=== PATIENT | female | born 1960 | race Caucasian/White ===

== ENCOUNTER 2018-02-17 20:34 | Emergency (ER) | payer BC ==
[2018-02-17] MEDS ORDERED: LORAZEPAM 0.5 MG TABLET ONE (21:41)
[2018-02-17 22:09] LABS: Absolute Lymphocytes (CBC) 1.4 K/uL (0.7-4.9); Absolute Monocytes 0.5 K/uL (0.1-1.3); Absolute Neutrophil 4.3 K/uL (1.8-8.0); Basophils % 0.2 % (0-1.3); Eosinophils % 0.5 % (0-4.4); Hematocrit 41.9 % (36.0-45.0); Lymphocytes % 22.7 % (15.3-44.8); MCH 30.8 pg (27.0-35.0); MCV 90.6 fL (80-100); MPV 7.4 fL (7.6-11.3); Monocytes % 7.3 % (3.3-12.3); RBC Red Blood Cell Count 4.63 M/uL (3.86-4.86)
[2018-02-17 22:12] LABS: Potassium 3.3 mEq/L (3.6-5.0)
[2018-02-17 22:15] LABS: Albumin 4.7 g/dL (3.2-5.5); Bilirubin Total 0.6 mg/dL (0.3-1.2); Protein, Total 7.2 g/dL (6.0-8.3)
--- NOTE | 2018-02-17 22:45 | EDPHYS ---
Physician Documentation [facility] Name: Chelo Chao Age: 57 yrs Sex: Female : 1960 Arrival Date: 02/17/2018 Time: 20:34 Bed 6 Private MD: ED Physician Lai Simon HPI: 02/18 06:17 This 57 yrs old Female presents to ER via Ambulatory with complaints of Psych tw4 Problem. 06:17 The patient presents to the emergency department with anxiety. Onset: The tw4 symptoms/episode began/occurred yesterday. Past psychiatric history: Prior diagnosis: depression. Associated signs and symptoms: The patient has no apparent associated signs or symptoms. Severity of symptoms: At their worst the symptoms were moderate in the emergency department the symptoms are unchanged. The patient has not experienced similar symptoms in the past. Historical: - Allergies: 02/17 20:49 fluorescein-benoxinate; aj - Home Meds: 20:49 trazodone 50 mg Oral tab [Active]; Effexor XR Oral [Active]; aj Triamterene-Hydrochlorothiazid Oral [Active]; Hydroxyzine Oral [Active]; Risperdal Oral [Active]; Metoprolol Tartrate Oral [Active]; pravastatin oral oral [Active]; Potassium Chloride Oral [Active]; Caltrate 600+D Plus Minerals oral oral [Active]; - PMHx: 20:49 Anxiety; Bipolar disorder; Hypertension; Hyperlipidemia; aj - Immunization history:: Adult Immunizations up to date. - Social history:: Smoking status: Patient/guardian denies using tobacco. - Ebola Screening: : Patient negative for fever greater than or equal to 101.5 degrees Fahrenheit, and additional compatible Ebola Virus Disease symptoms. ROS: 02/18 06:17 Constitutional: Negative for fever, chills, and weight loss, Cardiovascular: Negative tw4 for chest pain, palpitations, and edema, Respiratory: Negative for shortness of breath, cough, wheezing, and pleuritic chest pain, Abdomen/GI: Negative for abdominal pain, nausea, vomiting, diarrhea, and constipation, Back: Negative for injury and pain, MS/Extremity: Negative for injury and deformity, Skin: Negative for injury, rash, and discoloration. Neuro: Negative for altered mental status, dizziness, gait disturbance, headache, tinnitus, tremor, visual changes. Psych: Positive for anxiety, depression, insomnia, Negative for auditory hallucinations, visual hallucinations, homicidal ideation, suicide gesture, suicidal ideation. Exam: 06:17 Constitutional: This is a well developed, well nourished patient who is awake, alert, tw4 and in no acute distress. Head/Face: Normocephalic, atraumatic. Chest/axilla: Normal chest wall appearance and motion. Nontender with no deformity. No lesions are appreciated. Cardiovascular: Regular rate and rhythm with a normal S1 and S2. No gallops, murmurs, or rubs. Normal PMI, no JVD. No pulse deficits. Respiratory: Lungs have equal breath sounds bilaterally, clear to auscultation and percussion. No rales, rhonchi or wheezes noted. No increased work of breathing, no retractions or nasal flaring. Abdomen/GI: Soft, non-tender, with normal bowel sounds. No distension or tympany. No guarding or rebound. No evidence of tenderness throughout. Skin: Warm, dry with normal turgor. Normal color with no rashes, no lesions, and no evidence of cellulitis. 06:17 Psych: exam not indicated, Behavior/mood is pleasant, cooperative, Affect is calm, flat, Oriented to person, place, time, Patient has no thoughts/intents to harm self or others. Vital Signs: 02/17 20:49 BP 132 / 97; Pulse 94; Resp 16; Temp 98.3; Pulse Ox 97% on R/A; Weight 63.5 kg; Height aj 5 ft. 6 in. (167.64 cm); 21:54 BP 130 / 91; Pulse 89; Resp 16 S; Pulse Ox 98% on R/A; Pain 0/10; jd3 22:49 BP 144 / 99; Pulse 84; Resp 16 S; Pulse Ox 100% ; Pain 0/10; jd3 20:49 Body Mass Index 22.60 (63.50 kg, 167.64 cm) aj MDM: 20:52 Patient medically screened. tw4 02/18 06:17 Differential diagnosis: acute psychotic break, depression, psychosis secondary to tw4 non-compliance. Data reviewed: vital signs, nurses notes. Counseling: I had a detailed discussion with the patient and/or guardian regarding: the historical points, exam findings, and any diagnostic results supporting the discharge/admit diagnosis. Special discussion: I discussed with the patient/guardian in detail that at this point there is no indication for admission to the hospital. It is understood, however, that if the symptoms persist or worsen the patient needs to return immediately for re-evaluation. 02/17 21:35 Order name: CBC with Diff; Complete Time: 22:39 tw4 02/17 21:35 Order name: CMP; Complete Time: 22:39 tw4 Administered Medications: 02/17 21:45 Drug: Ativan 0.5 mg Route: PO; mg2 22:42 Follow up: Response: No adverse reaction jd3 22:48 Drug: Potassium Chloride 40 mEq Route: PO; jd3 22:55 Follow up: Response: Medication administered at discharge. jd3 Disposition: 02/17/18 22:45 Discharged to Home. Impression: Anxiety disorder due to known physiological condition. - Condition is Stable. - Discharge Instructions: Generalized Anxiety Disorder. - Prescriptions for Ativan 0.5 mg Oral Tablet - take 1 tablet by ORAL route every 8 hours As needed; 20 tablet. - Medication Reconciliation Form, Thank You Letter, Antibiotic Education, Prescription Opioid Use form. - Follow up: Private Physician; When: As needed; Reason: Recheck today's complaints, Continuance of care, Re-evaluation by your physician. - Problem is an ongoing problem. - Symptoms have improved. Signatures: Dispatcher [employer] EDLiliana Gonzalez RN RN aj Davies, Jonathon, RN RN jLai Alvarado MD MD tw4 Robbie Greenwood RN RN mg2 Corrections: (The following items were deleted from the chart) 22:55 22:45 02/17/2018 22:45 Discharged to Home. Impression: Anxiety disorder due to known jd3 physiological condition. Condition is Stable. Forms are Medication Reconciliation Form, Thank You Letter, Antibiotic Education, Prescription Opioid Use. Follow up: Private Physician; When: As needed; Reason: Recheck today's complaints, Continuance of care, Re-evaluation by your physician. Problem is an ongoing problem. Symptoms have improved. tw4
--- NOTE | 2018-02-17 22:45 | ER ---
Nurse's Notes [facility] Name: Chelo Chao Age: 57 yrs Sex: Female : 1960 Arrival Date: 02/17/2018 Time: 20:34 Bed 6 Private MD: Diagnosis: Anxiety disorder due to known physiological condition Presentation: 02/17 20:43 Presenting complaint: Patient states: Recent obsessions about financial concerns. aj Family is worried that patient is experiencing severe depression and possibly needs medication adjustment. Transition of care: patient was not received from another setting of care. Onset of symptoms was February 01, 2018. Risk Assessment: Do you want to hurt yourself or someone else? Patient reports no desire to harm self or others. Note Denies suicidal or homicidal ideation. Denies hallucinations. Care prior to arrival: None. 20:43 Method Of Arrival: Ambulatory 20:43 Acuity: KAMRAN 4 aj 21:11 Initial Sepsis Screen: Does the patient meet any 2 criteria? No. Patient's initial jd3 sepsis screen is negative. Does the patient have a suspected source of infection? No. Patient's initial sepsis screen is negative. Triage Assessment: 20:49 General: Appears in no apparent distress. comfortable, Behavior is calm, cooperative, aj appropriate for age. Pain: Denies pain. Neuro: Level of Consciousness is awake, alert, obeys commands, Oriented to person, place, time, situation, Appropriate for age. Respiratory: Airway is patent Respiratory effort is even, unlabored, Respiratory pattern is regular, symmetrical. Derm: Skin is intact, is healthy with good turgor, Skin is pink, warm \T\ dry. normal. Historical: - Allergies: 20:49 fluorescein-benoxinate; aj - Home Meds: 20:49 trazodone 50 mg Oral tab [Active]; Effexor XR Oral [Active]; aj Triamterene-Hydrochlorothiazid Oral [Active]; Hydroxyzine Oral [Active]; Risperdal Oral [Active]; Metoprolol Tartrate Oral [Active]; pravastatin oral oral [Active]; Potassium Chloride Oral [Active]; Caltrate 600+D Plus Minerals oral oral [Active]; - PMHx: 20:49 Anxiety; Bipolar disorder; Hypertension; Hyperlipidemia; aj - Immunization history:: Adult Immunizations up to date. - Social history:: Smoking status: Patient/guardian denies using tobacco. - Ebola Screening: : Patient negative for fever greater than or equal to 101.5 degrees Fahrenheit, and additional compatible Ebola Virus Disease symptoms. Screenin:10 Abuse screen: Denies threats or abuse. Nutritional screening: No deficits noted. jd3 Tuberculosis screening: No symptoms or risk factors identified. Fall Risk None identified. Assessment: 21:07 General: Appears comfortable, Behavior is cooperative, anxious, Reports family reports jd3 pt having increased anxiety over money related issues after her doctor adjusted her medications. family is concerned because she is not acting like herself. Pain: Denies pain. Neuro: Level of Consciousness is awake, alert, obeys commands, Oriented to person, place, time, situation, Gait is steady, Speech is normal. Cardiovascular: Heart tones S1 S2 present Capillary refill < 3 seconds Patient's skin is warm and dry. Respiratory: Airway is patent Respiratory effort is even, unlabored, Respiratory pattern is regular, symmetrical, Breath sounds are clear bilaterally. GI: Abdomen is round Bowel sounds present X 4 quads. Abd is soft and non tender X 4 quads. Patient currently denies abdominal pain. : No signs and/or symptoms were reported regarding the genitourinary system. EENT: No signs and/or symptoms were reported regarding the EENT system. Derm: Skin is healthy with good turgor, Skin is pink, warm \T\ dry. Musculoskeletal: Circulation, motion, and sensation intact. Range of motion: intact in all extremities. 21:53 Reassessment: Patient appears in no apparent distress at this time. Patient and/or jd3 family updated on plan of care and expected duration. Pain level reassessed. Patient is alert, oriented x 3, equal unlabored respirations, skin warm/dry/pink. Patient denies pain at this time. 22:49 Reassessment: Patient appears in no apparent distress at this time. Patient and/or jd3 family updated on plan of care and expected duration. Pain level reassessed. Patient is alert, oriented x 3, equal unlabored respirations, skin warm/dry/pink. Patient denies pain at this time. 22:54 Reassessment: Patient appears in no apparent distress at this time. Patient and/or jd3 family updated on plan of care and expected duration. Pain level reassessed. Patient is alert, oriented x 3, equal unlabored respirations, skin warm/dry/pink. pt reported understanding of discharge instructions, even and steady gait upon discharge. Patient denies pain at this time. Vital Signs: 20:49 BP 132 / 97; Pulse 94; Resp 16; Temp 98.3; Pulse Ox 97% on R/A; Weight 63.5 kg; Height aj 5 ft. 6 in. (167.64 cm); 21:54 BP 130 / 91; Pulse 89; Resp 16 S; Pulse Ox 98% on R/A; Pain 0/10; jd3 22:49 BP 144 / 99; Pulse 84; Resp 16 S; Pulse Ox 100% ; Pain 0/10; jd3 20:49 Body Mass Index 22.60 (63.50 kg, 167.64 cm) aj ED Course: 20:34 Patient arrived in ED. ds1 20:46 Triage completed. aj 20:49 Arm band placed on right wrist. Patient placed in an exam room. aj 20:52 Lai Simon MD is Attending Physician. tw4 21:06 Erasmo Matt RN is Primary Nurse. jd3 21:11 Patient has correct armband on for positive identification. Bed in low position. Call jd3 light in reach. Side rails up X 1. Adult w/ patient. 21:53 CMP Sent. jd3 21:53 CBC with Diff Sent. jd3 22:54 No provider procedures requiring assistance completed. Patient did not have IV access jd3 during this emergency room visit. Administered Medications: 21:45 Drug: Ativan 0.5 mg Route: PO; mg2 22:42 Follow up: Response: No adverse reaction jd3 22:48 Drug: Potassium Chloride 40 mEq Route: PO; jd3 22:55 Follow up: Response: Medication administered at discharge. jd3 Outcome: 22:45 Discharge ordered by . tw4 22:54 Discharged to home ambulatory, with family. jd3 22:54 Condition: stable 22:54 Discharge instructions given to patient, family, Instructed on discharge instructions, follow up and referral plans. medication usage, Demonstrated understanding of instructions, follow-up care, medications, Prescriptions given X 1. 22:55 Patient left the ED. jd3 Signatures: Liliana Mendiola RN RN aj Sanford, Demi ds1 Erasmo Matt RN RN jd3 Wadley, Terrence, MD MD tw4 Robbie Greenwood, RN RN mg2
[2018-02-17] MEDS ORDERED: POTASSIUM CL SA 10 MEQ TAB PO ONE (22:46)
== END 2018-02-17 22:55 | disposition home or self-care (01) ==
LOC: ER 20:34
DX: F41.1 Generalized anxiety disorder (principal); I10 Essential (primary) hypertension; E78.5 Hyperlipidemia, unspecified
CPT/HCPCS: 36415; 80053; 85025; 99283

== ENCOUNTER → 2019-07-05 | Day surgery (SDC) | payer BC ==
--- NOTE | 2019-07-05 12:35 | RAD REPORT ---
EXAM DESCRIPTION: US - Breast Core BX w/US Guidance - 07/05/2019 11:49 am CLINICAL HISTORY: ICD R 92.8 COMPARISON: June 22 2019 ultrasound TECHNIQUE: The risks, benefits alternatives to the procedure were explained to the patient and infor med consent obtained. Skin and subcutaneous tissues anesthetized with lidocaine. Under sonographic guidance, an 18 gauge needle was placed into the 1.4 centimeter complex cystic mass within the upper outer periareolar region of the right breast. Several cc of brownish fluid was aspi rated and sent to the lab Under sonographic guidance an additional 18 gauge needle was placed into the 7 millimeter mass adjace nt to this. On the current examination it has a more cystic appearance with low level echoes. Approxi mately 1 cc of brownish fluid was removed and sent to the lab Patient experienced no immediate complication IMPRESSION: Aspiration of 2 complex cystic masses within the periareolar region the right breast
== END ==
LOC: DS 09:40
PROVIDERS: ATTEND Obstetrics & Gynecology
PROC: 0H9T3ZX Drainage of Right Breast, Percutaneous Approach, Diagnostic (ICD-10-PCS; principal; 2019-07-05)
DX: N60.01 Solitary cyst of right breast (principal)
CPT/HCPCS: 19083; 88162

== ENCOUNTER 2020-08-27 08:59 | Day surgery (SDC) | payer BC ==
[2020-08-22 10:57] LABS: Urine Appearance CLOUDY; Urine Bilirubin NEGATIVE (NEG); Urine Blood NEGATIVE (NEG); Urine Color YELLOW; Urine Glucose NEGATIVE (NEG); Urine Protein NEGATIVE (NEG); Urine Specific Gravity <=1.005 (1.005-1.030); Urine Urobilinogen 0.2 mg/dL (0.2-1.0); Urine pH 7.5 (5.0-7.0)
[2020-08-22 10:58] LABS: Absolute Lymphocytes (CBC) 1.4 K/uL (0.7-4.9); Basophils % 0.5 % (0-1.3); Lymphocytes % 34.2 % (15.3-44.8); MPV 7.6 fL (7.6-11.3); RBC Red Blood Cell Count 4.31 M/uL (3.86-4.86)
[2020-08-22 11:01] LABS: Protime INR 0.99
[2020-08-22 11:30] LABS: Urine Microscopic Reflex ORDER UMIC
[2020-08-22 11:47] LABS: Urine Bacteria NONE SEEN /HPF (<20); Urine RBC NONE SEEN /HPF (NONE SEEN)
[2020-08-22 11:48] LABS: Urine Amorphous Sediment 2+ /HPF (NONE SEEN)
[2020-08-27] MEDS ORDERED: ROCURONIUM 50 MG/5 ML VIAL IV ONE (09:20)
[2020-08-27] MEDS ORDERED: propofoL 200 MG/20 ML VIAL IV ONE (09:20)
[2020-08-27] MEDS ORDERED: LIDOCAINE 2% MPF 5 ML VIAL ONE (09:20)
[2020-08-27] MEDS ORDERED: MIDAZOLAM HCL 2 MG/2 ML INJ ONE (09:20)
[2020-08-27] MEDS ORDERED: FENTANYL CITR 250 MCG/5 ML ONE (09:20)
[2020-08-27] MEDS ORDERED: BUPIVACAINE 0.25% PF 30 ML VIAL ONE (09:40)
[2020-08-27] MEDS ORDERED: Ringers Lactate 1,000 ML IV ONE (09:40)
[2020-08-27] MEDS ORDERED: SCOPOLAMINE HYDROBROMIDE PATCH TD ONE ×2 (09:40→09:46)
[2020-08-27] MEDS ORDERED: NA CHLORIDE 0.9% 100 ML IV ONE (09:40)
[2020-08-27] MEDS ORDERED: CEFAZOLIN SODIUM 1 GM/VIAL ONE ×2 (09:41→16:07)
[2020-08-27] MEDS: CEFAZOLIN/SWI 1gm 2 GM/20 ML SYR ONE ×2 (10:21→10:45)
[2020-08-27] MEDS ORDERED: dexAMETHasone 10 MG/ML VIAL ONE (10:57)
[2020-08-27] MEDS ORDERED: KETOROLAC 30 MG/ML INJ ONE (10:57)
[2020-08-27] MEDS ORDERED: ONDANSETRON 4 MG/2 ML VIAL ONE (10:59)
[2020-08-27] MEDS ORDERED: NS 0.9% VIAL 10 ML ONE ×4 (11:05→16:07)
[2020-08-27] MEDS ORDERED: Phenylephrine HCl 10 MG/ML 1 ML VIAL ONE (11:06)
[2020-08-27] MEDS ORDERED: VECURONIUM 10 MG/VIAL IV ONE ×2 (11:06)
[2020-08-27] MEDS ORDERED: EPHEDRINE SULF 50 MG/ML VIAL ONE (11:40)
[2020-08-27] MEDS: Ringers Lactate 1,000 ML IV ONE ×2 (11:40→15:56)
[2020-08-27] MEDS: VASOPRESSIN 20 UNIT/ML VIAL ONE ×2 (12:27→16:21)
[2020-08-27] MEDS ORDERED: NA CHLORIDE 0.9% 1,000 ML ONE (15:35)
[2020-08-27] MEDS ORDERED: NEOSTIGMINE 1 MG/ML -5 ML ONE (17:22)
[2020-08-27] MEDS ORDERED: GLYCOPYRROLATE 0.2 MG/ML SYR ONE (17:22)
[2020-08-27] MEDS ORDERED: MEPERIDINE HCL 50 MG/ML IM PRN (18:15)
[2020-08-27] MEDS ORDERED: IBUPROFEN 600 MG TAB PO PRN (18:16)
[2020-08-27] MEDS ORDERED: PROMETHAZINE INJ 25 MG/ML AMP IV PRN (18:18)
[2020-08-27 18:45] VITALS: BMI 20.7
[2020-08-27] MEDS: Ringers Lactate 1,000 ML IV SCH (19:30)
[2020-08-28] MEDS: Ringers Lactate 1,000 ML IV SCH (03:30)
[2020-08-28 03:40] VITALS: O2SAT 98
[2020-08-28 06:07] LABS: Absolute Lymphocytes (CBC) 1.8 K/uL (0.7-4.9); Basophils % 0.3 % (0-1.3); Hematocrit 30.5 % (36.0-45.0); Lymphocytes % 26.5 % (15.3-44.8); MPV 7.6 fL (7.6-11.3); RBC Red Blood Cell Count 3.35 M/uL (3.86-4.86)
[2020-08-28 07:37] VITALS: BP 118/72; TEMP 99.2
--- NOTE | 2020-10-05 03:17 | OP ---
Date of Procedure: 08/27/2020 Surgeon: Rosey Camarena MD Psychiatry Adult Physician: Jody Cruz. Preoperative Diagnoses: Stage II uterovaginal prolapse, fibroids, occult stress urinary incontinence , and rectocele. Postoperative Diagnoses: Stage II uterovaginal prolapse, fibroids, occult stress urinary incontinenc e, and rectocele. Procedures Performed: 1.Total laparoscopic hysterectomy and bilateral salpingo-oophorectomy. 2.Sacral colpopexy using Upsylon Y-mesh. 3.Rectocele repair, perineorrhaphy. 4.Mid urethral sling TVTO and cystoscopy. Estimated Blood Loss: 100. Specimens: Uterus, bilateral tubes, and ovaries. Complications: No complications. Drains: Sue catheter. Vaginal packing. Anesthesia: General endotracheal. Findings: Pop-Q 0, +1, -1 for moderate 8, 0, 0, -3. Brief History And Physical: The patient is a 60-year-old female with significant uterovaginal prolap se and symptomatic from bulge and inability to empty her bladder. She was evaluated in the office fu lly via transvaginal ultrasound, urodynamic testing, cystoscopy. After everything was well evaluated , she was counseled on different options including vaginal pessary for conservative management with s [facility] or care in the office. Then, this was compared non mesh repair, vaginal anterior-posterior repair with colpopexy and sling. Then about the graft augmented sacral colpopexy with alongside hyst erectomy, repair of the anterior and posterior garcia as well as mid urethral sling. After all these, we discussed benefits and risks and complications of these procedures including the use of a synthet ic mesh graft, all handouts were given to the patient in advance and all questions were answered to h er satisfaction. Then, she preferred to proceed with the procedure that gave her least recurrence de spite understanding that this involved the placement of mesh which is not the vaginal mesh that is ba nned by FDA. Then, she was brought into the OR after COVID test preop clearance was done. Then, she was consented in the preop area, her was present and the questions were answered to their satisfaction. Description Of Procedure: 2 g of Ancef was given and the patient was taken back to the OR, placed in a supine fashion on the operating table. General anesthesia was given. She was placed in a dorsal lithotomy position. Arms were tucked by the side. Time-out was done, and adequate positioning was c hecked. Her abdomen, vulva, vagina, and perineum were prepped and draped in a sterile fashion. Fole y was placed to drain the bladder. Then, speculum was placed to expose the cervix. Anterior lip was grasped with 2 Allis clamps and a medium-size vaginal manipulator was introduced into the uterus and fixed in place. This area was then draped. Sue connected for retrograde filling. 1 cm infraumbilical incision was made with a scalpel using the open laparoscopy technique. Fascia wa s incised and cut. Local injection of Marcaine was given at the skin and fascia. The peritoneum entered sharply. S-retractors were placed. Jason was introduced. Site of entry unr emarkable. 10 suprapubic and two 5 left lower and right lower quadrant ports were placed under direct vision. T hen, once inside the peritoneal cavity and everything was checked, and unremarkable, the patient was placed in Trendelenburg. The epiploica of the sigmoid colon were held with 3-0 Monocryl suture in th e left upper quadrant with the help of Zheng-Alessandro needle. This was retrieved and handed out for hemostatic. On inspection of the sacrum, there was excellent exposure of the anterior longitudinal ligament, the bifurcation of the iliacs was well visualized and the left mesenteric vein, IVC were visualized as we ll. We went down to visualize the ureter courses on both sides and unremarkable large posterior fibroid p resent around the tip of the uterus. Other than that, no other abnormalities seen. Both tubes and o varies normal. After taking the LigaSure, the infundibulopelvic ligament, mesosalpinx were all taken down. Round li gament was taken down and broad ligament was taken down until level of the vessels and the anterior a nd posterior peritoneum were opened up and the bladder flap was raised and posteriorly the peritoneum was taken down past the uterosacral towards the medial aspect. Similar dissection of opposite side was performed and once the vessels were exposed, bladder was diss ected inferiorly exposing the VCare cup, the vessels were taken down with the bipolar and LigaSure on the right side, then similar on the left side. No evidence of any uterosacral attachment to a signi ficant level. Once the specimen was removed after monopolar cautery was used to detach performing a colpotomy, the specimen was retrieved safely through the vagina. Thorough irrigation and suction were performed. Vaginal occluder was placed and the vaginal cuff was closed in 2 layers using a 2-0 Vicryl V-Loc suture starting at the right end coming to the left and then imbricating the initial closure with the connective tissue on top of the vaginal epithelial clos ure and then taking 2 back passers. The vaginal manipulator was introduced into the vagina at the cuff and the bladder was dissected. Th e bladder was held with 2 atraumatic graspers, dissected off the anterior vaginal wall at least 3.5 c m. Once this was adequate at the level of the area above the trigone, then, dissection was stopped. Lateral aspects were also clear enough to suture the mesh. Posteriorly, the peritoneum was picked up and dissected inferiorly, went on to make sure that the pos terior vaginal wall was exposed. The rectum was dissected inferiorly and lateral space was created f or the attachment of the graft. Once this was done, the peritoneum was picked up to the level of the sacrum and on both sides, the peritoneum was pulled on tension and then incision was made with the h elp of the LigaSure and opened up the space. Then, the presacral nerve was preserved to the left and the anterior longitudinal ligament was carefully dissected in layers through the subcutaneous tissue s to expose it. Once I was there and was cleared up nicely in front of S1 and was ready for attachme nt. Then, the peritoneum was carefully lifted up from underlying tissues and the nerve and dissectio n carried between the right pararectal margin and the ureter staying away from the sidewall as well a s the bowel coming to the end of the right lateral dissection in the posterior cul-de-sac. Once thes e were too attached, then underlying tissues and the peritoneum were to accommodate the mes h without crumpling it. The mesh graft was taken, trimmed to 8 cm posterior wall and 5 cm anterior wall. The anterior mesh w as sutured to the sacral arm with the help of loosely tied 3-0 Vicryl suture. The graft distal in the center was held with the help of a V-Loc. Then, this was attached to it and the suture was passed in and loaded to take the distal central stitch with the V-Loc so that this cou ld position the graft and stabilize it while I take the lateral bites. Once this was done, the needl e was pulled out. The graft was pushed inn through the left lower quadrant port. A clean towel was placed on the abdomen while handing the mesh without any contact of the skin. 2 lateral Prolene sutures were taken in [id number] fashion and then passed through the graft and tied down. Then, distal 2 PDS sutures were taken in the posterior wall at least a centimeter and aguillon lf below the level of the cuff. The sutures were taken to position and stabilize the graft. Then, w ent back into the anterior round, by cutting with 3-0 Vicryl suture that was holding it to the sacral arm and the sacral arm was tensioned appropriately by removing the vaginal manipulator and making sure at least 4-5 cm of the sacral arm present before the tacking happened, at least 5 cm was left and even slightly more. Then, the graft was stabilized by retracting the lateral aspects on th e left. The peritoneum, presacral nerve, as well as the left IMV with the grasper then on the right side. Similarly, the right common iliac was protected and peritoneum pulled laterally for a good exp osure of the anterior longitudinal ligament. First, 3 rows of ProTacks were placed in the distal par t of the S1 space ligament. Then, the bone graft was folded over and proximal 3 pins were placed. The meshed graft was nicely trimmed without excess and removed, then, attention was directed to the a nterior attachment. The distal anterior parts laterally were sutured with the help of 2-0 Prolene in a [id number] fashion and then held. Then, the graft was placed on top of it and the lateral ma rgins of the graft at least at 4.5 cm were picked up and then central V-Loc suture was placed. Then, proximally on the anterior wall to stabilize this, PDS x2 2-0 was placed on each side. Then, o nce all this was stabilized, excess mesh was trimmed off. The bladder was pulled over. Then, the pe ritoneal closure with the help of 2-0 V-Loc in a continuous running fashion, starting at the sacrum a nd wearing the mesh at the top. Then, the entire mesh was retroperitonealized by taking a continuous suture all the way down to the level of the bladder and onto the right side then, another the suture started on the left side and coming to the center and making sure everything was concealed. Thorough irrigation suction was performed. Excellent ureteric motion on both sides without evidence of any electrical, mechanical, or thermal injury to them. Thorough irrigation performed. Trocars re moved under direct vision. All injections were placed in the fascial level. The umbilical trocar re moved as well. Gas desufflated. Fascia closed with the help of tag 0 Vicryl, tied to each other and then suprapubic closed with simple 0 Vicryl stitch. All interrupted 4-0 Vicryl sutures at the skin incisions. The bowel was retracted and made sure that the epiploica were unremarkable before closing the periton eum. On the pelvic exam, mid urethral area was picked up with the help of Allis clamps, injected with dilu te vasopressin in the center and along the tracts on both sides. The patient placed in Trendelenburg with high lithotomy. Then, 1 cm mid urethral incision was made and dissection carried to the latera l aspect to the obturator space hugging the inferior pubic ramus. After perforating the obturator me mbrane, the scissors were opened up to create the tract on both sides. Similar dissection was perfor med. Then wing guide was placed through this and spike passed. Once it passed through the obturator internus, then it was turned hugging the inferior pubic ramus and exiting 1 cm lateral to the groin fold above the level of the horizontal line drawn at the meatus. Similar pass was taken on the oppos ite side as well and passed. The plastic dilators were cut. Plastic sheath and sling were held with Melvina clamps. Tension on the center with the help of Metzenbaum scissors, the plastic sheaths were pulled out. The mesh was trimmed, flushed with the skin and the skin pulled over and closed with the help of Dermabond. Then, antibiotic irrigation done in the mid urethral area. After removing the g raft, there was a proper tensioning without any excess tension. The skin incision closed with the he lp of 3-0 Vicryl in a continuous running locked fashion and Sue was removed. Cystoscopy with 17-Fr ench sheath, 30-degree lens. Normal jets of urine from both ureteric orifices. No evidence of any t rauma to the bladder or foreign body at the trigone area above the trigone and lateral wall as well a s the area immediately superior to the internal meatus. No masses, diverticula, no sling trauma or f oreign body. Urethroscopy was performed and on the way out and the bladder was drained and Sue was replaced. This was retracted superiorly and clamped. Attention directed to the posterior wall. A melissa-shaped incision was placed and the distal part o f the perineum marked out. Then dilute vasopressin was injected in this area. A melissa-shaped skin and vaginal epithelium and sub epithelium incision was made with the help of scalpel. Then, the vag inal epithelium was peeled off the underlying tissues. The flaps were raised on outside mobilizing t he underlying rectovaginal septum. The proximal part of the dissection almost touched the distal par t of the posterior Y mesh. So, once all this was opened up and reduced, the connective tissue defect was well visualized. This was closed with the help of 2-0 PDS in a continuous running horizontal ma ttress fashion. Once this was done, this was closed, perineal body was reconstructed with the help o f 2-0 Vicryl sutures x3 with the rectovaginal hand. Once the gloves were changed, came back, tied th srini and attached the PDS to this and then ran it back and sutured it inside a little higher and the p osterior wall tube area. Then, the vaginal epithelial incisions were made sure that they were luis t together without causing too much narrowing of the vaginal canal, but enough so that there was good tension and good closure. Once the excess skin was excised, which was slight amount. Then, horizon evan mattress 2-0 Vicryl closure was done to close the posterior compartment and the perineal body rep air was performed here without having to make a skin incision on the perineum. Once this was done, t here was excellent perineal body support, posterior wall support continuous with a graft and rectal e xam was negative. Instrument, needle, and sponge counts were correct at the end of the case. The fidelia lopez tolerated the procedure well. She was recovered from anesthesia and taken to PACU in stable condition for observation overnight. KONSTANTIN/DOREEN Voice ID: [id number] Report ID: [id number]
== END 2020-08-28 10:00 | disposition home or self-care (01) ==
LOC: OR 08:59 → 2ND-WC 17:25 → OR 08-28 10:00
PROVIDERS: ATTEND Obstetrics & Gynecology
PROC: 0UT24ZZ Resection of Bilateral Ovaries, Percutaneous Endoscopic Approach (ICD-10-PCS; 2020-08-27)
PROC: 0UT74ZZ Resection of Bilateral Fallopian Tubes, Percutaneous Endoscopic Approach (ICD-10-PCS; 2020-08-27)
PROC: 0USG4ZZ Reposition Vagina, Percutaneous Endoscopic Approach (ICD-10-PCS; 2020-08-27)
PROC: 0JQC0ZZ Repair Pelvic Region Subcutaneous Tissue and Fascia, Open Approach (ICD-10-PCS; 2020-08-27)
PROC: 0WQNXZZ Repair Female Perineum, External Approach (ICD-10-PCS; 2020-08-27)
PROC: 0TSD0ZZ Reposition Urethra, Open Approach (ICD-10-PCS; 2020-08-27)
PROC: 0UT94ZZ Resection of Uterus, Percutaneous Endoscopic Approach (ICD-10-PCS; principal; 2020-08-27 08:00)
DX: N39.3 Stress incontinence (female) (male) (principal); N81.2 Incomplete uterovaginal prolapse; N95.2 Postmenopausal atrophic vaginitis; D25.9 Leiomyoma of uterus, unspecified; N81.6 Rectocele; E78.00 Pure hypercholesterolemia, unspecified; I10 Essential (primary) hypertension; F41.9 Anxiety disorder, unspecified; F32.9 Major depressive disorder, single episode, unspecified; N83.8 Other noninflammatory disorders of ovary, fallopian tube and broad ligament; Z20.828 Contact with and (suspected) exposure to other viral communicable diseases; K21.9 Gastro-esophageal reflux disease without esophagitis
CPT/HCPCS: 85025 ×2; 80048; 36415 ×2; 86900; 86850; 85610; 86901; 88307; 85730; 58571; 57425; 57250; 57288; U0002; J2704; J2370; J2250; J3010; J1100; J2710; J0690 ×3; J7120 ×3; J7030; J2405; 81003; 81015